=== PATIENT | female | born 1970 | race Asian ===

== ENCOUNTER 2018-02-17 11:50 | Inpatient (IN) ==
[~2018-02-17 11:50] MED LIST: EPINEPHrine 1 MG/10 ML SYRINGE IV ONE
[2018-02-17] MEDS ORDERED: ASPIRIN 325 MG TABLET PO ONE (12:11)
[2018-02-17] MEDS ORDERED: diphenhydrAMINE CAP 25 MG CAPSULE PO ONE (12:11)
[2018-02-17] MEDS ORDERED: DIAZEPAM 5 MG TABLET PO ONE (12:11)
[2018-02-17] MEDS ORDERED: MAGNESIUM SULF RIDER 2 GM in PREMIX 1 EACH IV PRN (12:11)
[2018-02-17] MEDS ORDERED: ASPIRIN 325 MG TABLET ONE (12:37)
[2018-02-17] MEDS ORDERED: DIAZEPAM 5 MG TABLET ONE (12:37)
[2018-02-17] MEDS ORDERED: diphenhydrAMINE CAP 25 MG CAPSULE ONE (12:37)
[2018-02-17] MEDS: SODIUM CHLORIDE 0.9% 1,000 ML IV SCH (12:39)
[2018-02-17] MEDS ORDERED: LIDOCAINE 1% 20 ML VIAL ONE (12:42)
[2018-02-17] MEDS ORDERED: HEPARIN/NACL 0.9% 2 UNITS/ML 1,000 ML IV ONE (12:42)
[2018-02-17 12:55] LABS: INR 1.1; PT Patient Result 11.4 SECS
[2018-02-17 12:58] LABS: Calcium 8.9 MG/DL (8.5-10.1); Osmolality,Calculated 287.1 MOS/KG (273-304); Potassium 3.7 MMOL/L (3.5-5.1)
[2018-02-17 13:10] LABS: Basophils # 0.1 10*3/uL (0.0-0.2); Basophils % 0.8 % (0.0-0.8); Eosinophils # 0.1 10*3/uL (0.0-0.87); Eosinophils % 1.1 % (0.00-10.9); Hematocrit 30.6 VOL% (35.7-47.0); Immature Granulocytes % 0.5 %; Immature Granulocytes Absolute 0.04 #; Lymphocytes # 1.5 10*3/uL (1.4-4.0); Lymphocytes % 19.4 % (21.3-54.2); Mean Corpuscular HGB Conc 28.4 GM/DL (32-36); Mean Corpuscular Hemoglobin 19 PG (27-34); Mean Platelet Volume 10.4 FL (9.6-12.0); Monocytes # 0.7 10*3/uL (0.11-0.8); Monocytes % 8.4 % (1.7-12.7); Neutrophils # 5.6 10*3/uL (1.4-7.4); Neutrophils % 69.8 % (38.7-73.9); Platelet Count 434 T/CUMM (130-400); Red Blood Count 4.57 MC/CUMM (3.8-5.5); Red Cell Distribution Width 19.1 % (9.3-17.3)
[2018-02-17 13:13] LABS: Hemoglobin 8.7 GM/DL (12.0-16.0)
[2018-02-17] MEDS ORDERED: VERAPAMIL 5 MG/2 ML VIAL ONE (13:13)
[2018-02-17] MEDS ORDERED: NITROGLYCERIN DRIP 50 MG/250 ML BOTTLE IV ONE (13:13)
[2018-02-17] MEDS ORDERED: HYDROmorphone 2 MG/1 ML VIAL ONE (13:15)
[2018-02-17] MEDS ORDERED: MIDAZOLAM 2 MG/2 ML VIAL ONE (13:15)
[2018-02-17] MEDS ORDERED: FUROSEMIDE 40 MG/4 ML VIAL ONE (13:35)
[2018-02-17] MEDS ORDERED: ENOXAPARIN 30 MG/0.3 ML SYRINGE ONE (13:37)
[2018-02-17] MEDS ORDERED: diphenhydrAMINE CAP 25 MG CAPSULE PO PRN (14:25)
[2018-02-17] MEDS ORDERED: ONDANSETRON 4 MG/2 ML VIAL ONE (14:42)
[2018-02-17] MEDS ORDERED: ONDANSETRON 4 MG/2 ML VIAL IV ONE (14:45)
[2018-02-17] MEDS: FUROSEMIDE 40 MG TABLET PO SCH (15:56)
[2018-02-17] MEDS: CARVEDILOL 3.125 MG TABLET PO SCH ×2 (15:56→20:44)
[2018-02-17] MEDS: ROSUVASTATIN 20 MG TABLET PO SCH (20:44)
[2018-02-18 03:51] LABS: Basophils # 0.1 10*3/uL (0.0-0.2); Basophils % 0.9 % (0.0-0.8); Eosinophils # 0.3 10*3/uL (0.0-0.87); Eosinophils % 3.6 % (0.00-10.9); Hematocrit 26.6 VOL% (35.7-47.0); Hemoglobin 7.6 GM/DL (12.0-16.0); Immature Granulocytes % 0.2 %; Immature Granulocytes Absolute 0.02 #; Lymphocytes # 1.1 10*3/uL (1.4-4.0); Mean Corpuscular HGB Conc 28.6 GM/DL (32-36); Mean Corpuscular Hemoglobin 19 PG (27-34); Mean Corpuscular Volume 65.7 FL (87-102); Mean Platelet Volume 10.2 FL (9.6-12.0); Monocytes # 0.8 10*3/uL (0.11-0.8); Monocytes % 9.1 % (1.7-12.7); Neutrophils # 6.4 10*3/uL (1.4-7.4); Neutrophils % 73.2 % (38.7-73.9); Platelet Count 384 T/CUMM (130-400); Red Blood Count 4.05 MC/CUMM (3.8-5.5); Red Cell Distribution Width 18.4 % (9.3-17.3); White Blood Count 8.7 T/CUMM (4-12)
[2018-02-18 04:17] LABS: Calcium 7.9 MG/DL (8.5-10.1); Osmolality,Calculated 284.3 MOS/KG (273-304); Potassium 3.3 MMOL/L (3.5-5.1)
[2018-02-18 04:21] LABS: Calcium 7.7 MG/DL (8.5-10.1); Potassium 3.2 MMOL/L (3.5-5.1); Risk Ratio 3.83; VLDL CHOLESTEROL 18.4 MG/DL
[2018-02-18 04:33] LABS: Hypochromasia Slight; Microcytosis 2+; Platelet Estimate Normal; Target Cells Few
[2018-02-18 04:34] LABS: Anisocytosis 2+; Elliptocytes Few
[2018-02-18] MEDS: LEVOTHYROXINE 150 MCG TABLET PO SCH (06:35)
[2018-02-18] MEDS: CARVEDILOL 3.125 MG TABLET PO SCH ×2 (08:55→21:23)
[2018-02-18] MEDS: ASPIRIN EC 81 MG TABLET PO SCH (08:56)
[2018-02-18] MEDS: LOSARTAN 25 MG TABLET PO SCH (08:56)
[2018-02-18] MEDS: CHOLECALCIFEROL 5,000 UNIT TABLET PO SCH (08:56)
[2018-02-18] MEDS: FUROSEMIDE 40 MG TABLET PO SCH ×2 (08:56→16:55)
[2018-02-18] MEDS: ISOSORBIDE MONONITRATE 30 MG TABLET PO SCH (08:56)
[2018-02-18] MEDS: CALCITRIOL 0.5 MCG CAPSULE PO SCH (08:56)
[2018-02-18] MEDS: POTASSIUM CHLORIDE RIDER 10 MEQ in PREMIX 1 EACH IV PRN ×2 (08:58→12:19)
[2018-02-18] MEDS: SPIRONOLACTONE 25 MG TABLET PO SCH (16:55)
[2018-02-18] MEDS: SODIUM CHLORIDE 0.9% 1,000 ML IV SCH (17:47)
[2018-02-18] MEDS: ROSUVASTATIN 20 MG TABLET PO SCH (21:22)
[2018-02-19 04:17] LABS: Calcium 9.3 MG/DL (8.5-10.1); Osmolality,Calculated 288.4 MOS/KG (273-304); Potassium 3.7 MMOL/L (3.5-5.1)
[2018-02-19] MEDS: LEVOTHYROXINE 150 MCG TABLET PO SCH (06:45)
[2018-02-19 08:15] LABS: Basophils % 0.5 % (0.0-0.8); Eosinophils # 0.3 10*3/uL (0.0-0.87); Eosinophils % 3.9 % (0.00-10.9); Hematocrit 27.3 VOL% (35.7-47.0); Hemoglobin 7.8 GM/DL (12.0-16.0); Immature Granulocytes % 0.3 %; Immature Granulocytes Absolute 0.03 #; Lymphocytes # 1.8 10*3/uL (1.4-4.0); Lymphocytes % 20.4 % (21.3-54.2); Mean Corpuscular HGB Conc 28.6 GM/DL (32-36); Mean Corpuscular Hemoglobin 19 PG (27-34); Mean Corpuscular Volume 65.9 FL (87-102); Mean Platelet Volume 10.6 FL (9.6-12.0); Monocytes # 0.9 10*3/uL (0.11-0.8); Neutrophils # 5.7 10*3/uL (1.4-7.4); Neutrophils % 64.9 % (38.7-73.9); Platelet Count 391 T/CUMM (130-400); Red Blood Count 4.14 MC/CUMM (3.8-5.5); White Blood Count 8.7 T/CUMM (4-12)
[2018-02-19 08:39] LABS: Hypochromasia 1+; Platelet Estimate Adequate
[2018-02-19 08:40] LABS: Microcytosis 1+
[2018-02-19] MEDS: LOSARTAN 25 MG TABLET PO SCH (08:49)
[2018-02-19] MEDS: ASPIRIN EC 81 MG TABLET PO SCH (08:49)
[2018-02-19] MEDS: ISOSORBIDE MONONITRATE 30 MG TABLET PO SCH (08:49)
[2018-02-19] MEDS: CHOLECALCIFEROL 5,000 UNIT TABLET PO SCH (08:49)
[2018-02-19] MEDS: CARVEDILOL 3.125 MG TABLET PO SCH ×2 (08:49→20:21)
[2018-02-19] MEDS: SPIRONOLACTONE 25 MG TABLET PO SCH (08:49)
[2018-02-19] MEDS: CALCITRIOL 0.5 MCG CAPSULE PO SCH (08:49)
[2018-02-19] MEDS ORDERED: CEFUROXIME INJ 1,500 MG in SYRINGE 1 EACH IV ONE (10:56)
[2018-02-19] MEDS: SODIUM CHLORIDE 0.9% 1,000 ML IV SCH (11:36)
[2018-02-19] MEDS ORDERED: SODIUM CHLORIDE 0.9% 1,000 ML IV PRN (13:33)
[2018-02-19] MEDS ORDERED: FUROSEMIDE 40 MG/4 ML VIAL IV ONE (16:05)
[2018-02-19 17:45] LABS: Hematocrit 34.4 VOL% (35.7-47.0)
[2018-02-19 17:46] LABS: Hemoglobin 10.6 GM/DL (12.0-16.0)
[2018-02-19] MEDS: CHLORHEXIDINE 0.12% ORAL RINSE 60 ML BOTTLE SWISH/SPIT SCH (20:20)
[2018-02-19] MEDS: ROSUVASTATIN 20 MG TABLET PO SCH (20:21)
[2018-02-19] MEDS: CHLORHEXIDINE 4% SOLN 118 ML BOTTLE TOP SCH (20:21)
[2018-02-20] MEDS: CHLORHEXIDINE 4% SOLN 118 ML BOTTLE TOP SCH ×2 (00:02→09:53)
[2018-02-20 04:00] LABS: Basophils # 0.1 10*3/uL (0.0-0.2); Basophils % 0.6 % (0.0-0.8); Eosinophils # 0.2 10*3/uL (0.0-0.87); Eosinophils % 1.3 % (0.00-10.9); Hematocrit 34.6 VOL% (35.7-47.0); Hemoglobin 10.7 GM/DL (12.0-16.0); Immature Granulocytes % 0.6 %; Immature Granulocytes Absolute 0.09 #; Lymphocytes # 1.3 10*3/uL (1.4-4.0); Lymphocytes % 8.3 % (21.3-54.2); Mean Corpuscular HGB Conc 30.9 GM/DL (32-36); Mean Corpuscular Hemoglobin 21 PG (27-34); Mean Corpuscular Volume 68.7 FL (87-102); Mean Platelet Volume 9.7 FL (9.6-12.0); Monocytes # 0.7 10*3/uL (0.11-0.8); Monocytes % 4.3 % (1.7-12.7); NRBC # 0.04 10*3/uL; Neutrophils # 13.8 10*3/uL (1.4-7.4); Neutrophils % 84.9 % (38.7-73.9); Platelet Count 338 T/CUMM (130-400); Red Blood Count 5.04 MC/CUMM (3.8-5.5); Red Cell Distribution Width 23.4 % (9.3-17.3); White Blood Count 16.2 T/CUMM (4-12)
[2018-02-20 04:26] LABS: Calcium 9.1 MG/DL (8.5-10.1); Osmolality,Calculated 282.5 MOS/KG (273-304); Potassium 3.2 MMOL/L (3.5-5.1)
[2018-02-20] MEDS ORDERED: TISSUE ADHESIVE 1 EACH APPLICATOR TOP ONE ×2 (04:42→13:13)
[2018-02-20] MEDS ORDERED: PAPAVERINE 60 MG/2 ML VIAL ONE (04:42)
[2018-02-20] MEDS ORDERED: VANCOMYCIN 1,000 MG VIAL ONE (04:42)
[2018-02-20 04:51] LABS: Hypochromasia 1+; Platelet Estimate Adequate
[2018-02-20 04:52] LABS: Microcytosis 1+
[2018-02-20] MEDS ORDERED: SODIUM CHLOR 0.9% KCL 40 MEQ 40 MEQ/1,000 ML BAG IV SCH (05:38)
[2018-02-20] MEDS ORDERED: HEPARIN/NACL 0.9% 2 UNITS/ML 500 ML IV ONE (06:52)
[2018-02-20] MEDS ORDERED: PHENYLEPHRINE DRIP 20 MG/250 ML PREMIX IV ONE (06:52)
[2018-02-20] MEDS ORDERED: SODIUM CHLORIDE 0.9% 250 ML IV ONE ×2 (06:53→16:55)
[2018-02-20] MEDS ORDERED: NITROGLYCERIN DRIP 50 MG/250 ML BOTTLE IV ONE (06:53)
[2018-02-20] MEDS ORDERED: SODIUM CHLORIDE 0.9% 1,000 ML IV ONE ×2 (06:53→16:55)
[2018-02-20] MEDS ORDERED: AMINOCAPROIC ACID 5,000 MG/20 ML VIAL IV ONE (06:53)
[2018-02-20] MEDS ORDERED: LACTATED RINGERS 1,000 ML IV ONE (06:53)
[2018-02-20] MEDS: POTASSIUM CHLORIDE RIDER 10 MEQ in PREMIX 1 EACH IV PRN ×2 (07:02→09:56)
[2018-02-20] MEDS: LEVOTHYROXINE 150 MCG TABLET PO SCH (07:05)
[2018-02-20] MEDS ORDERED: CALCIUM CHLORIDE 1,000 MG/10 ML SYRINGE IV ONE (07:37)
[2018-02-20] MEDS ORDERED: ALBUMIN 5% 12.5 GM/250 ML VIAL IV ONE (07:38)
[2018-02-20] MEDS ORDERED: PHENYLEPHRINE DRIP 40 MG/250 ML PREMIX IV ONE (07:38)
[2018-02-20] MEDS ORDERED: EPINEPHrine 1 MG/10 ML SYRINGE ONE (07:38)
[2018-02-20] MEDS ORDERED: POTASSIUM CHLORIDE RIDER 100 ML IV ONE (07:38)
[2018-02-20] MEDS ORDERED: SODIUM BICARBONATE 50 MEQ/50 ML SYRINGE IV ONE ×2 (07:38→16:02)
[2018-02-20] MEDS ORDERED: NITROPRUSSIDE 50 MG/2 ML VIAL ONE (07:39)
[2018-02-20] MEDS ORDERED: CEFUROXIME INJ 1,500 MG in SYRINGE 1 EACH IV ONE (09:00)
[2018-02-20] MEDS ORDERED: MIDAZOLAM 2 MG/2 ML VIAL ONE ×2 (10:39→10:55)
[2018-02-20] MEDS: CHOLECALCIFEROL 5,000 UNIT TABLET PO SCH (12:17)
[2018-02-20] MEDS: ISOSORBIDE MONONITRATE 30 MG TABLET PO SCH (12:17)
[2018-02-20] MEDS: CARVEDILOL 3.125 MG TABLET PO SCH (12:17)
[2018-02-20] MEDS: CHLORHEXIDINE 0.12% ORAL RINSE 60 ML BOTTLE SWISH/SPIT SCH ×2 (12:17→20:28)
[2018-02-20] MEDS: ASPIRIN EC 81 MG TABLET PO SCH (12:17)
[2018-02-20] MEDS: CALCITRIOL 0.5 MCG CAPSULE PO SCH (12:17)
[2018-02-20] MEDS: SODIUM CHLORIDE 0.9% 1,000 ML IV SCH ×3 (12:17→14:45)
[2018-02-20 12:35] LABS: ABG Base Excess -1.4 MMOL/L (-2.5-2.5); ABG HCO3 23.3 MMOL/L (20-26); ABG PCO2 29.3 MM HG (35-48); ABG PH 7.471 (7.35-7.45); ABG TCO2 19.1 MMOL/L (23-27); Glucose Heart Surgery 112 MG/DL (74-106); Hemoglobin Heart Surgery 10.7 G/DL (12.0-16.0); Ionized Calcium Arterial 1.14 MMOL/L (1.21-1.46); PCO2 Patient Temp Arterial 29.3 MMHG; PH Patient Temp Arterial 7.471; Patient Temperature 37 CELCIUS; Potassium Heart/CVR 3.8 MMOL/L (3.5-5.1); Sodium Heart/CVR 138 MMOL/L (135-145)
[2018-02-20 13:01] LABS: Apearance,Urine CLEAR (Clear); Bilirubin,Urine Negative (Negative); Blood, Urine Negative (Negative); Glucose,Urine (UA) Negative (Negative); Ketones,Urine 5 mg/dL (Negative); Nitrite,Urine Negative (Negative); Protein,Urine Negative; RBC,Urine <1 /HPF (0-4); Squamous Epithelial Cell,Urine Occasional /HPF (0-10); Urine Color Yellow (Yellow); Urine Specific Gravity 1.013 (1.001-1.035); Urine Urobilinogen < 2.0 EU/DL (0.2-1.0)
[2018-02-20 14:18] LABS: Hematocrit Heart Surgery 19.5 PERCENT (37-47); PCO2 Patient Temp Venous 31.3 MM HG; PH Patient Temp Venous 7.477; PO2 Patient Temp Venous 32.6 MM HG; Potassium Heart/CVR 4.2 MMOL/L (3.5-5.1); VBG Base Excess -0.1 MEQ/L (0-4); VBG HCO3 24.1 MEQ/L (24-28); VBG Oxygen Saturation 71.5 %; VBG PCO2 34.4 MMHG (41-51); VBG PH 7.447; VBG PO2 37.5 MMHG (17-40)
[2018-02-20 14:19] LABS: Hemoglobin Heart Surgery 6.2 G/DL (12.0-16.0)
[2018-02-20 14:50] LABS: Hematocrit Heart Surgery 20.8 PERCENT (37-47); Hemoglobin Heart Surgery 6.7 G/DL (12.0-16.0); Potassium Heart/CVR 3.6 MMOL/L (3.5-5.1); VBG Base Excess -0.2 MEQ/L (0-4); VBG Oxygen Saturation 74.9 %; VBG PH 7.469; VBG PO2 38.8 MMHG (17-40)
[2018-02-20 14:53] LABS: PCO2 Patient Temp Venous 27.7 MM HG; PH Patient Temp Venous 7.514; PO2 Patient Temp Venous 31.5 MM HG
[2018-02-20] MEDS ORDERED: THROMBIN TOPICAL (RECOMBINANT) 5,000 UNIT VIAL TOP ONE (15:12)
[2018-02-20 15:33] LABS: ABG Base Excess -3.6 MMOL/L (-2.5-2.5); ABG HCO3 21.4 MMOL/L (20-26); ABG PCO2 30.2 MM HG (35-48); ABG PH 7.429 (7.35-7.45); ABG TCO2 18.6 MMOL/L (23-27); Glucose Heart Surgery 272 MG/DL (74-106); Hematocrit Heart Surgery 25.2 PERCENT (37-47); Hemoglobin Heart Surgery 8.1 G/DL (12.0-16.0); Ionized Calcium Arterial 1.37 MMOL/L (1.21-1.46); PCO2 Patient Temp Arterial 26.1 MMHG; PH Patient Temp Arterial 7.473; Patient Temperature 34 CELCIUS; Potassium Heart/CVR 3.8 MMOL/L (3.5-5.1); Sodium Heart/CVR 132 MMOL/L (135-145)
[2018-02-20] MEDS ORDERED: MANNITOL 100 GM/500 ML BAG IV ONE (16:01)
[2018-02-20] MEDS ORDERED: HEPARIN 10,000 UNIT/10 ML VIAL ONE (16:02)
[2018-02-20] MEDS ORDERED: MAGNESIUM SULFATE 10 GM/20 ML VIAL IV ONE (16:02)
[2018-02-20] MEDS ORDERED: methylPREDNISolone SOD SUC 1,000 MG/8 ML VIAL ONE (16:02)
[2018-02-20] MEDS ORDERED: ALBUMIN 25% 25 GM/100 ML VIAL IV ONE (16:02)
[2018-02-20] MEDS ORDERED: PROTAMINE SULFATE 250 MG/25 ML VIAL IV ONE (16:02)
[2018-02-20] MEDS ORDERED: DEXTROSE 5% KCL 20 MEQ 20 MEQ/1,000 ML BAG IV ONE (16:02)
[2018-02-20] MEDS ORDERED: FUROSEMIDE 20 MG/2 ML VIAL ONE (16:03)
[2018-02-20] MEDS ORDERED: POTASSIUM CHLORIDE 20 MEQ/10 ML VIAL ONE (16:03)
[2018-02-20] MEDS: ALBUMIN 5% 12.5 GM in PREMIX 1 EACH IV PRN ×3 (16:45→18:36)
[2018-02-20] MEDS: PHENYLEPHRINE DRIP 40 MG/250 ML PREMIX IV PRN (16:45)
[2018-02-20] MEDS ORDERED: MIDAZOLAM 10 MG/2 ML VIAL ONE (16:54)
[2018-02-20] MEDS ORDERED: CHLORHEXIDINE 4% SOLN 118 ML BOTTLE TOP PRN (16:54)
[2018-02-20] MEDS ORDERED: SUFentanil 250 MCG/5 ML AMP ONE (16:54)
[2018-02-20] MEDS ORDERED: MAGNESIUM SULF RIDER 2 GM in PREMIX 1 EACH IV PRN (16:54)
[2018-02-20] MEDS ORDERED: DEXTROSE 50% 25 GM/50 ML SYRINGE IV PRN ×2 (16:54)
[2018-02-20] MEDS ORDERED: INSULIN REGULAR 100 UNIT/ML IV PRN (16:54)
[2018-02-20] MEDS ORDERED: ACETAMINOPHEN 650 MG SUPP RECTAL PRN (16:54)
[2018-02-20] MEDS ORDERED: CALCIUM CHLORIDE 1,000 MG/10 ML SYRINGE IV PRN (16:54)
[2018-02-20] MEDS ORDERED: SODIUM CHLORIDE 0.9% 250 ML IV PRN (16:54)
[2018-02-20] MEDS ORDERED: MAGNESIUM SULF RIDER 4 GM in PREMIX 1 EACH IV PRN (16:54)
[2018-02-20] MEDS ORDERED: SODIUM CHLORIDE 0.9% 200 ML IV ONE (16:55)
[2018-02-20] MEDS ORDERED: VECURONIUM 10 MG VIAL IV ONE (16:55)
[2018-02-20] MEDS ORDERED: CALCIUM CHLORIDE 1,000 MG/10 ML VIAL IV ONE (16:55)
[2018-02-20] MEDS ORDERED: SEVOFLURANE 1 UNIT/15 MINUTE INH ONE (16:56)
[2018-02-20] MEDS ORDERED: SODIUM CHLORIDE 0.45% 1,000 ML IV SCH (17:00)
[2018-02-20] MEDS ORDERED: INSULIN REGULAR DRIP 100 ML IV SCH (17:00)
[2018-02-20] MEDS: SODIUM CHLORIDE 0.45% 1,000 ML IV SCH (17:07)
[2018-02-20 17:33] LABS: ABG HCO3 20.3 MMOL/L (20-26); ABG Oxygen Saturation 99.3 % (95-100); ABG PCO2 32.4 MM HG (35-48); ABG PH 7.383 (7.35-7.45); ABG TCO2 17.7 MMOL/L (23-27); Glucose Heart Surgery 220 MG/DL (74-106); Hematocrit Heart Surgery 29.4 PERCENT (37-47); Hemoglobin Heart Surgery 9.5 G/DL (12.0-16.0); Potassium Heart/CVR 4.1 MMOL/L (3.5-5.1)
[2018-02-20 17:34] LABS: Basophils # 0.1 10*3/uL (0.0-0.2); Basophils % 0.5 % (0.0-0.8); Eosinophils # 0.2 10*3/uL (0.0-0.87); Eosinophils % 1.3 % (0.00-10.9); Hematocrit 29.3 VOL% (35.7-47.0); Hemoglobin 9.2 GM/DL (12.0-16.0); Immature Granulocytes % 1.4 %; Immature Granulocytes Absolute 0.16 #; Lymphocytes # 0.7 10*3/uL (1.4-4.0); Mean Corpuscular HGB Conc 31.4 GM/DL (32-36); Mean Corpuscular Hemoglobin 22 PG (27-34); Mean Corpuscular Volume 71.3 FL (87-102); Mean Platelet Volume 10.3 FL (9.6-12.0); Monocytes # 0.4 10*3/uL (0.11-0.8); Monocytes % 3.9 % (1.7-12.7); NRBC # 0.02 10*3/uL; Neutrophils # 9.7 10*3/uL (1.4-7.4); Neutrophils % 86.9 % (38.7-73.9); Red Blood Count 4.11 MC/CUMM (3.8-5.5); Red Cell Distribution Width 23.8 % (9.3-17.3)
[2018-02-20 17:39] LABS: Platelet Count 213 T/CUMM (130-400); White Blood Count 11.2 T/CUMM (4-12)
[2018-02-20 17:44] LABS: INR 1.2; PT Patient Result 12.8 SECS; Partial Thromboplastin Time 27.7 SECS (0-40)
[2018-02-20 17:55] LABS: Calcium 9.5 MG/DL (8.5-10.1); Osmolality,Calculated 284.7 MOS/KG (273-304); Potassium 4.1 MMOL/L (3.5-5.1)
[2018-02-20 19:02] LABS: ABG HCO3 20.3 MMOL/L (20-26); ABG PCO2 34.9 MM HG (35-48); ABG PH 7.362 (7.35-7.45); ABG TCO2 18.5 MMOL/L (23-27); Glucose Heart Surgery 165 MG/DL (74-106); Hematocrit Heart Surgery 25.4 PERCENT (37-47); Hemoglobin Heart Surgery 8.1 G/DL (12.0-16.0); Potassium Heart/CVR 4.1 MMOL/L (3.5-5.1)
[2018-02-20] MEDS ORDERED: ASPIRIN 325 MG TABLET PO ONE (19:08)
[2018-02-20 19:18] LABS: Anisocytosis 1+; Elliptocytes Few; Hypochromasia 1+; Microcytosis 1+; Platelet Estimate Normal
[2018-02-20 19:19] LABS: Ovalocytes Few; Polychromasia Slight
[2018-02-20] MEDS: MIDAZOLAM 2 MG/2 ML VIAL IV PRN (19:43)
[2018-02-20 22:55] LABS: Hematocrit 33.5 VOL% (35.7-47.0); Hemoglobin 10.6 GM/DL (12.0-16.0)
[2018-02-20] MEDS: MORPHINE 4 MG/1 ML VIAL IV PRN (23:03)
[2018-02-21] MEDS: CEFUROXIME INJ 1,500 MG in SYRINGE 1 EACH IV SCH ×2 (01:47→12:37)
[2018-02-21] MEDS: ALBUMIN 5% 12.5 GM in PREMIX 1 EACH IV PRN (01:47)
[2018-02-21] MEDS: MORPHINE 4 MG/1 ML VIAL IV PRN ×3 (02:00→21:05)
[2018-02-21] MEDS: ONDANSETRON 4 MG/2 ML VIAL IV PRN ×2 (03:49→15:27)
[2018-02-21] MEDS: MORPHINE 10 MG/1 ML VIAL IV PRN ×4 (04:14→15:48)
[2018-02-21] MEDS: MIDAZOLAM 2 MG/2 ML VIAL IV PRN ×2 (04:14→09:59)
[2018-02-21 04:28] LABS: Basophils % 0.1 % (0.0-0.8); Hematocrit 32.5 VOL% (35.7-47.0); Hemoglobin 10.2 GM/DL (12.0-16.0); Immature Granulocytes % 0.8 %; Immature Granulocytes Absolute 0.13 #; Lymphocytes # 0.5 10*3/uL (1.4-4.0); Lymphocytes % 3.3 % (21.3-54.2); Mean Corpuscular HGB Conc 31.4 GM/DL (32-36); Mean Corpuscular Hemoglobin 23 PG (27-34); Mean Corpuscular Volume 74.7 FL (87-102); Mean Platelet Volume 10.5 FL (9.6-12.0); Monocytes # 0.3 10*3/uL (0.11-0.8); Monocytes % 1.9 % (1.7-12.7); NRBC # 0.06 10*3/uL; Neutrophils # 14.9 10*3/uL (1.4-7.4); Neutrophils % 93.9 % (38.7-73.9); Platelet Count 208 T/CUMM (130-400); Red Blood Count 4.35 MC/CUMM (3.8-5.5); White Blood Count 15.9 T/CUMM (4-12)
[2018-02-21 04:52] LABS: Band Neutrophils 5 % (0-10); Hypochromasia 1+; Lymphocytes 1 % (20-55); Microcytosis 1+; Platelet Estimate Adequate; Segmented Neutrophils 92 % (50-85); Total Cells Counted 100
[2018-02-21 05:01] LABS: Calcium 7.3 MG/DL (8.5-10.1); Osmolality,Calculated 292.7 MOS/KG (273-304); Potassium 3.8 MMOL/L (3.5-5.1)
[2018-02-21] MEDS: POTASSIUM CHLORIDE RIDER 20 MEQ in PREMIX 1 EACH IV PRN ×2 (05:14→14:39)
[2018-02-21] MEDS: SODIUM CHLORIDE 0.45% 1,000 ML IV SCH (05:46)
[2018-02-21] MEDS: POTASSIUM CHLORIDE RIDER 10 MEQ in PREMIX 1 EACH IV PRN ×2 (05:47→15:13)
[2018-02-21 07:09] LABS: ABG Base Excess -7.8 MMOL/L (-2.5-2.5); ABG HCO3 17.5 MMOL/L (20-26); ABG Oxygen Saturation 97.1 % (95-100); ABG PCO2 34.8 MM HG (35-48); ABG PH 7.319 (7.35-7.45); ABG PO2 104.7 MM HG (80-95); ABG TCO2 18.6 MMOL/L (23-27); Glucose Heart Surgery 143 MG/DL (74-106); Hemoglobin Heart Surgery 11.3 G/DL (12.0-16.0)
[2018-02-21] MEDS ORDERED: SODIUM BICARBONATE 50 MEQ/50 ML SYRINGE IV ONE ×3 (07:20→11:36)
[2018-02-21] MEDS: INSULIN REGULAR 100 UNIT/ML SUBCUT SCH ×5 (07:58→23:27)
[2018-02-21] MEDS: PANTOPRAZOLE 40 MG VIAL IV SCH (08:30)
[2018-02-21] MEDS: CLOPIDOGREL 75 MG TABLET PO SCH (08:32)
[2018-02-21] MEDS: CHLORHEXIDINE 0.12% ORAL RINSE 60 ML BOTTLE SWISH/SPIT SCH ×2 (08:35→21:05)
[2018-02-21 11:20] LABS: ABG Base Excess -6.8 MMOL/L (-2.5-2.5); ABG HCO3 18.9 MMOL/L (20-26); ABG Oxygen Saturation 97.2 % (95-100); ABG PCO2 39.6 MM HG (35-48); ABG PH 7.295 (7.35-7.45); ABG PO2 99.4 MM HG (80-95); ABG TCO2 17.6 MMOL/L (23-27); Glucose Heart Surgery 157 MG/DL (74-106); Hematocrit Heart Surgery 32.7 PERCENT (37-47); Hemoglobin Heart Surgery 10.6 G/DL (12.0-16.0); Potassium Heart/CVR 4.1 MMOL/L (3.5-5.1)
[2018-02-21] MEDS: SODIUM BICARB INJ 50 MEQ in SODIUM CHLORIDE 0.45% 1,000 ML IV SCH (13:09)
[2018-02-21] MEDS ORDERED: FUROSEMIDE 40 MG/4 ML VIAL IV ONE (14:12)
[2018-02-21 14:32] LABS: ABG Base Excess -3.5 MMOL/L (-2.5-2.5); ABG HCO3 21.4 MMOL/L (20-26); ABG Oxygen Saturation 95.1 % (95-100); ABG PCO2 43.4 MM HG (35-48); ABG PH 7.322 (7.35-7.45); ABG TCO2 20.5 MMOL/L (23-27); Glucose Heart Surgery 208 MG/DL (74-106); Hematocrit Heart Surgery 32.6 PERCENT (37-47); Hemoglobin Heart Surgery 10.6 G/DL (12.0-16.0); Potassium Heart/CVR 3.6 MMOL/L (3.5-5.1)
[2018-02-21] MEDS: ATORVASTATIN 40 MG TABLET PO SCH ×2 (16:52→21:05)
[2018-02-21] MEDS: FUROSEMIDE 40 MG TABLET PO SCH (16:55)
[2018-02-21] MEDS: CARVEDILOL 3.125 MG TABLET PO SCH (16:55)
[2018-02-21] MEDS: ASPIRIN EC 325 MG TABLET PO SCH (16:55)
[2018-02-21] MEDS ORDERED: METOPROLOL TARTRATE 5 MG/5 ML VIAL IV STA (23:20)
[2018-02-22] MEDS: CEFUROXIME INJ 1,500 MG in SYRINGE 1 EACH IV SCH (00:50)
[2018-02-22] MEDS ORDERED: AMIODARONE INJ 150 MG in DEXTROSE 5% 100 ML IV ONE (03:11)
[2018-02-22] MEDS ORDERED: AMIODARONE INJ 450 MG in DEXTROSE 5% 241 ML IV SCH ×2 (03:30→10:00)
[2018-02-22] MEDS: INSULIN REGULAR 100 UNIT/ML SUBCUT SCH ×6 (03:40→20:14)
[2018-02-22 04:07] LABS: Basophils % 0.1 % (0.0-0.8); Hematocrit 34.8 VOL% (35.7-47.0); Hemoglobin 10.7 GM/DL (12.0-16.0); Immature Granulocytes % 0.9 %; Immature Granulocytes Absolute 0.25 #; Lymphocytes # 1.1 10*3/uL (1.4-4.0); Lymphocytes % 4.2 % (21.3-54.2); Mean Corpuscular HGB Conc 30.7 GM/DL (32-36); Mean Corpuscular Hemoglobin 23 PG (27-34); Mean Platelet Volume 10.5 FL (9.6-12.0); Monocytes % 7.4 % (1.7-12.7); NRBC # 0.12 10*3/uL; Neutrophils # 23.4 10*3/uL (1.4-7.4); Neutrophils % 87.4 % (38.7-73.9); Platelet Count 228 T/CUMM (130-400); Red Blood Count 4.64 MC/CUMM (3.8-5.5); Red Cell Distribution Width 23.2 % (9.3-17.3); White Blood Count 26.8 T/CUMM (4-12)
[2018-02-22 04:21] LABS: Calcium 7.2 MG/DL (8.5-10.1)
[2018-02-22 04:49] LABS: Band Neutrophils 4 % (0-10); Hypochromasia 1+; Lymphocytes 10 % (20-55); Microcytosis 1+; Nucleated Red Blood Cells 2 (0-5); Platelet Estimate Adequate; Segmented Neutrophils 81 % (50-85); Total Cells Counted 100
[2018-02-22] MEDS ORDERED: LACTATED RINGERS 500 ML IV ONE ×2 (06:59→08:23)
[2018-02-22] MEDS: ONDANSETRON 4 MG/2 ML VIAL IV PRN (07:25)
[2018-02-22] MEDS: MORPHINE 4 MG/1 ML VIAL IV PRN ×2 (07:32→23:50)
[2018-02-22] MEDS ORDERED: DOBUTamine 500 MG/250 ML PREMIX IV ONE (07:32)
[2018-02-22] MEDS: DOBUTamine 500 MG/250 ML PREMIX IV SCH (07:41)
[2018-02-22] MEDS: CARVEDILOL 3.125 MG TABLET PO SCH ×2 (08:34→17:30)
[2018-02-22 08:59] LABS: ABG Base Excess -5.4 MMOL/L (-2.5-2.5); ABG HCO3 19.9 MMOL/L (20-26); ABG Oxygen Saturation 97.2 % (95-100); ABG PCO2 34.8 MM HG (35-48); ABG PH 7.355 (7.35-7.45); ABG PO2 93.2 MM HG (80-95); ABG TCO2 17.7 MMOL/L (23-27)
[2018-02-22] MEDS: CLOPIDOGREL 75 MG TABLET PO SCH ×2 (09:10→11:56)
[2018-02-22] MEDS: ASPIRIN EC 325 MG TABLET PO SCH ×2 (09:10→11:55)
[2018-02-22] MEDS: FUROSEMIDE 40 MG TABLET PO SCH ×2 (09:10→11:55)
[2018-02-22] MEDS: CHLORHEXIDINE 0.12% ORAL RINSE 60 ML BOTTLE SWISH/SPIT SCH ×2 (09:10→21:43)
[2018-02-22] MEDS: PANTOPRAZOLE 40 MG VIAL IV SCH (09:11)
[2018-02-22] MEDS ORDERED: CALCIUM CHLORIDE 1,000 MG/10 ML SYRINGE IV ONE ×2 (09:25)
[2018-02-22] MEDS: AMIODARONE INJ 450 MG in DEXTROSE 5% 241 ML IV SCH ×2 (09:30→16:00)
[2018-02-22] MEDS ORDERED: SODIUM BICARBONATE 50 MEQ/50 ML SYRINGE IV ONE ×3 (09:30→17:00)
[2018-02-22] MEDS ORDERED: CALCIUM GLUCONATE 1,000 MG in SODIUM CHLORIDE 0.9% 100 ML IV ONE (09:30)
[2018-02-22] MEDS ORDERED: AMIODARONE 150 MG/3 ML VIAL IV ONE ×5 (09:37→11:34)
[2018-02-22] MEDS ORDERED: FUROSEMIDE 40 MG/4 ML VIAL ONE ×3 (09:38→10:14)
[2018-02-22] MEDS ORDERED: FUROSEMIDE 40 MG/4 ML VIAL IV ONE ×3 (09:39→10:15)
[2018-02-22] MEDS ORDERED: ALBUMIN 5% 12.5 GM/250 ML VIAL IV ONE (09:45)
[2018-02-22] MEDS ORDERED: PROPOFOL 1,000 MG/100 ML BOTTLE IV ONE (09:51)
[2018-02-22] MEDS: SODIUM BICARB INJ 50 MEQ in SODIUM CHLORIDE 0.45% 1,000 ML IV SCH (09:51)
[2018-02-22] MEDS ORDERED: EPINEPHrine 1 MG/10 ML SYRINGE IV ONE (10:00)
[2018-02-22] MEDS ORDERED: EPINEPHrine 1 MG/ML VIAL ONE (10:18)
[2018-02-22] MEDS ORDERED: ETOMIDATE 40 MG/20 ML VIAL IV ONE (10:23)
[2018-02-22] MEDS ORDERED: ROCURONIUM 100 MG/10 ML VIAL IV ONE (10:23)
[2018-02-22] MEDS: PROPOFOL 1,000 MG/100 ML BOTTLE IV SCH (11:28)
[2018-02-22] MEDS: PHENYLEPHRINE DRIP 40 MG/250 ML PREMIX IV PRN ×3 (11:29→20:19)
[2018-02-22] MEDS ORDERED: SODIUM BICARB INJ 50 MEQ in SODIUM CHLORIDE 0.45% 1,000 ML IV SCH (11:30)
[2018-02-22] MEDS ORDERED: AMIODARONE 150 MG/3 ML VIAL ONE (11:34)
[2018-02-22] MEDS ORDERED: HEPARIN/NACL 0.9% 2 UNITS/ML 500 ML IV ONE (12:20)
[2018-02-22 13:42] LABS: ABG Base Excess -8.7 MMOL/L (-2.5-2.5); ABG HCO3 17.5 MMOL/L (20-26); ABG Oxygen Saturation 99.9 % (95-100); ABG PCO2 32.3 MM HG (35-48); ABG PH 7.316 (7.35-7.45); ABG TCO2 14.8 MMOL/L (23-27)
[2018-02-22] MEDS ORDERED: ALBUMIN 25% 25 GM in PREMIX 1 EACH IV ONE (14:30)
[2018-02-22 16:49] LABS: ABG Base Excess -7.6 MMOL/L (-2.5-2.5); ABG HCO3 18.3 MMOL/L (20-26); ABG Oxygen Saturation 99.4 % (95-100); ABG PCO2 28.7 MM HG (35-48)
[2018-02-22] MEDS: ASCORBIC ACID 500 MG TABLET PO SCH ×2 (16:56→21:43)
[2018-02-22] MEDS: ATORVASTATIN 40 MG TABLET PO SCH (21:43)
[2018-02-22] MEDS ORDERED: PHENYLEPHRINE INJ 160 MG in SODIUM CHLORIDE 0.9% 234 ML IV PRN (21:47)
[2018-02-23] MEDS: INSULIN REGULAR 100 UNIT/ML SUBCUT SCH ×6 (00:32→20:23)
[2018-02-23] MEDS: PROPOFOL 1,000 MG/100 ML BOTTLE IV SCH ×3 (01:08→11:38)
[2018-02-23] MEDS: AMIODARONE INJ 450 MG in DEXTROSE 5% 241 ML IV SCH ×2 (01:12→14:35)
[2018-02-23 03:48] LABS: Basophils % 0.2 % (0.0-0.8); Hematocrit 31.3 VOL% (35.7-47.0); Hemoglobin 9.8 GM/DL (12.0-16.0); Immature Granulocytes % 3.4 %; Immature Granulocytes Absolute 0.83 #; Lymphocytes # 1.1 10*3/uL (1.4-4.0); Lymphocytes % 4.3 % (21.3-54.2); Mean Corpuscular HGB Conc 31.3 GM/DL (32-36); Mean Corpuscular Hemoglobin 23 PG (27-34); Mean Corpuscular Volume 74.3 FL (87-102); Mean Platelet Volume 11.3 FL (9.6-12.0); Monocytes # 1.6 10*3/uL (0.11-0.8); Monocytes % 6.6 % (1.7-12.7); NRBC # 0.27 10*3/uL; Neutrophils # 21.1 10*3/uL (1.4-7.4); Neutrophils % 85.5 % (38.7-73.9); Platelet Count 183 T/CUMM (130-400); Red Blood Count 4.21 MC/CUMM (3.8-5.5); Red Cell Distribution Width 25.9 % (9.3-17.3); White Blood Count 24.6 T/CUMM (4-12)
[2018-02-23 04:07] LABS: Calcium 7.5 MG/DL (8.5-10.1); Osmolality,Calculated 295.3 MOS/KG (273-304)
[2018-02-23 04:10] LABS: ABG Base Excess -0.5 MMOL/L (-2.5-2.5); ABG HCO3 21.3 MMOL/L (20-26); ABG Oxygen Saturation 98.6 % (95-100); ABG PH 7.531 (7.35-7.45); ABG PO2 164.8 MM HG (80-95); ABG TCO2 22.1 MMOL/L (23-27)
[2018-02-23 04:44] LABS: Lymphocytes 5 % (20-55); Nucleated Red Blood Cells 1 (0-5); Platelet Estimate Adequate; Polychromasia Few; Segmented Neutrophils 89 % (50-85); Total Cells Counted 100
[2018-02-23] MEDS ORDERED: FUROSEMIDE 40 MG/4 ML VIAL IV ONE ×2 (06:51→18:00)
[2018-02-23] MEDS ORDERED: FUROSEMIDE 40 MG/4 ML VIAL ONE (06:53)
[2018-02-23] MEDS: SODIUM CHLORIDE 0.9% 1,000 ML IV SCH (07:43)
[2018-02-23] MEDS ORDERED: CALCIUM GLUCONATE 2,000 MG in SODIUM CHLORIDE 0.9% 100 ML IV ONE (08:00)
[2018-02-23] MEDS: CLOPIDOGREL 75 MG TABLET PO SCH (08:47)
[2018-02-23] MEDS: PANTOPRAZOLE 40 MG VIAL IV SCH (08:47)
[2018-02-23] MEDS: FUROSEMIDE 40 MG TABLET PO SCH (08:47)
[2018-02-23] MEDS: CHLORHEXIDINE 0.12% ORAL RINSE 60 ML BOTTLE SWISH/SPIT SCH ×2 (08:47→20:31)
[2018-02-23] MEDS: ASCORBIC ACID 500 MG TABLET PO SCH ×2 (08:47→20:32)
[2018-02-23] MEDS: AMIODARONE 200 MG TABLET PO SCH ×2 (08:47→20:31)
[2018-02-23] MEDS: ASPIRIN EC 325 MG TABLET PO SCH (08:47)
[2018-02-23] MEDS: CARVEDILOL 3.125 MG TABLET PO SCH ×2 (08:49→16:42)
[2018-02-23] MEDS: DOBUTamine 500 MG/250 ML PREMIX IV SCH (08:59)
[2018-02-23] MEDS: ATORVASTATIN 40 MG TABLET PO SCH (20:31)
[2018-02-24] MEDS: INSULIN REGULAR 100 UNIT/ML SUBCUT SCH ×6 (00:06→20:16)
[2018-02-24 03:48] LABS: ABG Base Excess 1.5 MMOL/L (-2.5-2.5); ABG HCO3 25.8 MMOL/L (20-26); ABG Oxygen Saturation 99.4 % (95-100); ABG PCO2 29.9 MM HG (35-48); ABG PH 7.511 (7.35-7.45); ABG TCO2 21.7 MMOL/L (23-27)
[2018-02-24] MEDS: MORPHINE 4 MG/1 ML VIAL IV PRN ×5 (03:58→20:52)
[2018-02-24 04:26] LABS: Basophils % 0.1 % (0.0-0.8); Eosinophils % 0.1 % (0.00-10.9); Hemoglobin 9.6 GM/DL (12.0-16.0); Immature Granulocytes % 3.2 %; Immature Granulocytes Absolute 0.59 #; Lymphocytes # 1.4 10*3/uL (1.4-4.0); Lymphocytes % 7.4 % (21.3-54.2); Mean Corpuscular Hemoglobin 23 PG (27-34); Mean Corpuscular Volume 74.7 FL (87-102); Monocytes # 1.2 10*3/uL (0.11-0.8); Monocytes % 6.8 % (1.7-12.7); NRBC # 0.17 10*3/uL; Neutrophils # 15.1 10*3/uL (1.4-7.4); Neutrophils % 82.4 % (38.7-73.9); Platelet Count 190 T/CUMM (130-400); Red Blood Count 4.15 MC/CUMM (3.8-5.5); Red Cell Distribution Width 27.9 % (9.3-17.3); White Blood Count 18.3 T/CUMM (4-12)
[2018-02-24 04:37] LABS: Calcium 7.6 MG/DL (8.5-10.1); Osmolality,Calculated 301.1 MOS/KG (273-304); Potassium 3.7 MMOL/L (3.5-5.1)
[2018-02-24] MEDS: POTASSIUM CHLORIDE RIDER 20 MEQ in PREMIX 1 EACH IV PRN (05:05)
[2018-02-24] MEDS: POTASSIUM CHLORIDE RIDER 10 MEQ in PREMIX 1 EACH IV PRN (05:37)
[2018-02-24 05:52] LABS: Band Neutrophils 1 % (0-10); Lymphocytes 6 % (20-55); Nucleated Red Blood Cells 2 (0-5); Segmented Neutrophils 84 % (50-85); Total Cells Counted 100
[2018-02-24 05:53] LABS: Acanthocytes Few; Anisocytosis 1+; Hypochromasia 1+; Ovalocytes Few
[2018-02-24 05:54] LABS: Platelet Estimate Adequate; Target Cells 1+
[2018-02-24] MEDS: AMIODARONE INJ 450 MG in DEXTROSE 5% 241 ML IV SCH ×2 (06:13→21:29)
[2018-02-24] MEDS: PROPOFOL 1,000 MG/100 ML BOTTLE IV SCH ×2 (06:47→16:53)
[2018-02-24] MEDS: ASPIRIN EC 325 MG TABLET PO SCH (08:33)
[2018-02-24] MEDS: AMIODARONE 200 MG TABLET PO SCH ×2 (08:33→20:52)
[2018-02-24] MEDS: DOBUTamine 500 MG/250 ML PREMIX IV SCH (08:33)
[2018-02-24] MEDS: ASCORBIC ACID 500 MG TABLET PO SCH ×2 (08:33→20:51)
[2018-02-24] MEDS: FUROSEMIDE 40 MG TABLET PO SCH (08:33)
[2018-02-24] MEDS: CLOPIDOGREL 75 MG TABLET PO SCH (08:33)
[2018-02-24] MEDS: CARVEDILOL 3.125 MG TABLET PO SCH ×2 (08:34→16:39)
[2018-02-24] MEDS: PANTOPRAZOLE 40 MG VIAL IV SCH (08:49)
[2018-02-24] MEDS: CHLORHEXIDINE 0.12% ORAL RINSE 60 ML BOTTLE SWISH/SPIT SCH ×2 (08:50→21:24)
[2018-02-24] MEDS: ALBUMIN 5% 12.5 GM in PREMIX 1 EACH IV PRN (12:18)
[2018-02-24] MEDS: SODIUM CHLORIDE 0.9% 1,000 ML IV SCH ×2 (12:21→22:26)
[2018-02-24] MEDS: FUROSEMIDE 40 MG/4 ML VIAL IV SCH (12:49)
[2018-02-24] MEDS: ATORVASTATIN 40 MG TABLET PO SCH (20:51)
[2018-02-25] MEDS: INSULIN REGULAR 100 UNIT/ML SUBCUT SCH ×5 (00:29→16:41)
[2018-02-25] MEDS: MORPHINE 4 MG/1 ML VIAL IV PRN ×3 (02:32→22:13)
[2018-02-25 04:30] LABS: ABG Base Excess 1.6 MMOL/L (-2.5-2.5); ABG HCO3 25.9 MMOL/L (20-26); ABG Oxygen Saturation 99.8 % (95-100); ABG PCO2 32.1 MM HG (35-48); ABG PH 7.491 (7.35-7.45); ABG TCO2 22.2 MMOL/L (23-27)
[2018-02-25 05:31] LABS: Basophils % 0.2 % (0.0-0.8); Eosinophils # 0.1 10*3/uL (0.0-0.87); Eosinophils % 0.5 % (0.00-10.9); Hematocrit 31.2 VOL% (35.7-47.0); Hemoglobin 9.6 GM/DL (12.0-16.0); Immature Granulocytes % 5.2 %; Immature Granulocytes Absolute 0.82 #; Lymphocytes # 1.1 10*3/uL (1.4-4.0); Lymphocytes % 7.1 % (21.3-54.2); Mean Corpuscular HGB Conc 30.8 GM/DL (32-36); Mean Corpuscular Hemoglobin 24 PG (27-34); Mean Corpuscular Volume 76.7 FL (87-102); Monocytes # 1.1 10*3/uL (0.11-0.8); Monocytes % 6.7 % (1.7-12.7); NRBC # 0.11 10*3/uL; Neutrophils # 12.7 10*3/uL (1.4-7.4); Neutrophils % 80.3 % (38.7-73.9); Red Blood Count 4.07 MC/CUMM (3.8-5.5); Red Cell Distribution Width 29.6 % (9.3-17.3); White Blood Count 15.9 T/CUMM (4-12)
[2018-02-25 05:37] LABS: Platelet Count 199 T/CUMM (130-400)
[2018-02-25 05:56] LABS: Calcium 7.7 MG/DL (8.5-10.1); Potassium 3.6 MMOL/L (3.5-5.1)
[2018-02-25 06:13] LABS: Hypochromasia 1+; Lymphocytes 16 % (20-55); Microcytosis 1+; Nucleated Red Blood Cells 1 (0-5); Platelet Estimate Normal; Polychromasia Few; Segmented Neutrophils 83 % (50-85); Target Cells Few; Total Cells Counted 100
[2018-02-25] MEDS: POTASSIUM CHLORIDE RIDER 20 MEQ in PREMIX 1 EACH IV PRN (07:45)
[2018-02-25] MEDS: FUROSEMIDE 40 MG/4 ML VIAL IV SCH (08:30)
[2018-02-25] MEDS: PANTOPRAZOLE 40 MG VIAL IV SCH (08:31)
[2018-02-25] MEDS: AMIODARONE 200 MG TABLET PO SCH ×2 (08:31→21:13)
[2018-02-25] MEDS: CLOPIDOGREL 75 MG TABLET PO SCH (08:31)
[2018-02-25] MEDS: DOBUTamine 500 MG/250 ML PREMIX IV SCH (08:31)
[2018-02-25] MEDS: CARVEDILOL 3.125 MG TABLET PO SCH ×4 (08:31→21:31)
[2018-02-25] MEDS: ASCORBIC ACID 500 MG TABLET PO SCH ×2 (08:31→21:12)
[2018-02-25] MEDS: SODIUM CHLORIDE 0.9% 1,000 ML IV SCH (08:31)
[2018-02-25] MEDS: ASPIRIN EC 325 MG TABLET PO SCH (08:32)
[2018-02-25] MEDS: CHLORHEXIDINE 0.12% ORAL RINSE 60 ML BOTTLE SWISH/SPIT SCH ×2 (08:54→21:15)
[2018-02-25] MEDS: PROPOFOL 1,000 MG/100 ML BOTTLE IV SCH (13:13)
[2018-02-25] MEDS ORDERED: METOPROLOL TARTRATE 5 MG/5 ML VIAL IV ONE ×2 (13:23)
[2018-02-25] MEDS: ATORVASTATIN 40 MG TABLET PO SCH (21:12)
[2018-02-25] MEDS: ONDANSETRON 4 MG/2 ML VIAL IV PRN (22:16)
[2018-02-26] MEDS: ONDANSETRON 4 MG/2 ML VIAL IV PRN (04:32)
[2018-02-26] MEDS: MORPHINE 4 MG/1 ML VIAL IV PRN ×3 (04:33→22:18)
[2018-02-26 05:14] LABS: Basophils % 0.3 % (0.0-0.8); Eosinophils # 0.2 10*3/uL (0.0-0.87); Eosinophils % 1.5 % (0.00-10.9); Hematocrit 30.3 VOL% (35.7-47.0); Hemoglobin 9.2 GM/DL (12.0-16.0); Immature Granulocytes % 7.3 %; Immature Granulocytes Absolute 1.13 #; Lymphocytes % 6.6 % (21.3-54.2); Mean Corpuscular HGB Conc 30.4 GM/DL (32-36); Mean Corpuscular Hemoglobin 23 PG (27-34); Mean Corpuscular Volume 76.3 FL (87-102); Mean Platelet Volume 10.8 FL (9.6-12.0); Monocytes # 1.2 10*3/uL (0.11-0.8); Monocytes % 7.8 % (1.7-12.7); NRBC # 0.13 10*3/uL; Neutrophils # 11.9 10*3/uL (1.4-7.4); Neutrophils % 76.5 % (38.7-73.9); Platelet Count 191 T/CUMM (130-400); Red Blood Count 3.97 MC/CUMM (3.8-5.5); Red Cell Distribution Width 29.6 % (9.3-17.3); White Blood Count 15.5 T/CUMM (4-12)
[2018-02-26 05:38] LABS: Osmolality,Calculated 298.4 MOS/KG (273-304); Potassium 3.6 MMOL/L (3.5-5.1)
[2018-02-26] MEDS: POTASSIUM CHLORIDE RIDER 20 MEQ in PREMIX 1 EACH IV PRN (06:24)
[2018-02-26 08:22] LABS: Anisocytosis 2+; Band Neutrophils 10 % (0-10); Lymphocytes 10 % (20-55); Nucleated Red Blood Cells 3 (0-5); Platelet Estimate Normal; Poikilocytosis 1+; Polychromasia 1+; Segmented Neutrophils 77 % (50-85); Target Cells Few; Total Cells Counted 100
[2018-02-26 08:23] LABS: Smudge Cells Few
[2018-02-26] MEDS: ASCORBIC ACID 500 MG TABLET PO SCH ×2 (09:12→21:05)
[2018-02-26] MEDS: CLOPIDOGREL 75 MG TABLET PO SCH (09:13)
[2018-02-26] MEDS: CARVEDILOL 3.125 MG TABLET PO SCH ×3 (09:14→21:06)
[2018-02-26] MEDS: AMIODARONE 200 MG TABLET PO SCH ×2 (09:14→21:05)
[2018-02-26] MEDS: ASPIRIN EC 325 MG TABLET PO SCH (09:14)
[2018-02-26] MEDS: POTASSIUM CHLORIDE RIDER 10 MEQ in PREMIX 1 EACH IV PRN (09:34)
[2018-02-26] MEDS: SODIUM CHLORIDE 0.9% 1,000 ML IV SCH (09:35)
[2018-02-26] MEDS: PANTOPRAZOLE 40 MG VIAL IV SCH (09:35)
[2018-02-26] MEDS: CHLORHEXIDINE 0.12% ORAL RINSE 60 ML BOTTLE SWISH/SPIT SCH ×2 (09:36→21:06)
[2018-02-26] MEDS: FUROSEMIDE 40 MG TABLET PO SCH (09:36)
[2018-02-26] MEDS ORDERED: PROMETHAZINE 25 MG TABLET PO ONE (12:44)
[2018-02-26] MEDS ORDERED: SUPER CALCIUM PO SCH (13:33)
[2018-02-26] MEDS: ATORVASTATIN 40 MG TABLET PO SCH (21:05)
[2018-02-27 04:58] LABS: Basophils % 0.2 % (0.0-0.8); Eosinophils # 0.3 10*3/uL (0.0-0.87); Eosinophils % 2.2 % (0.00-10.9); Hematocrit 28.9 VOL% (35.7-47.0); Hemoglobin 8.8 GM/DL (12.0-16.0); Immature Granulocytes % 6.1 %; Immature Granulocytes Absolute 0.87 #; Lymphocytes # 1.3 10*3/uL (1.4-4.0); Lymphocytes % 8.8 % (21.3-54.2); Mean Corpuscular HGB Conc 30.4 GM/DL (32-36); Mean Corpuscular Hemoglobin 23 PG (27-34); Mean Corpuscular Volume 76.7 FL (87-102); Mean Platelet Volume 11.2 FL (9.6-12.0); Monocytes # 1.3 10*3/uL (0.11-0.8); Monocytes % 8.9 % (1.7-12.7); NRBC # 0.06 10*3/uL; Neutrophils # 10.5 10*3/uL (1.4-7.4); Neutrophils % 73.8 % (38.7-73.9); Platelet Count 189 T/CUMM (130-400); Red Blood Count 3.77 MC/CUMM (3.8-5.5); Red Cell Distribution Width 30.5 % (9.3-17.3); White Blood Count 14.2 T/CUMM (4-12)
[2018-02-27 05:20] LABS: Band Neutrophils 1 % (0-10); Eosinophils 1 % (0-10); Hypochromasia 1+; Lymphocytes 10 % (20-55); Myelocytes 1 %; Nucleated Red Blood Cells 2 (0-5); Ovalocytes Slight; Platelet Estimate Adequate; Segmented Neutrophils 79 % (50-85); Total Cells Counted 100
[2018-02-27 05:21] LABS: Calcium 7.6 MG/DL (8.5-10.1); Osmolality,Calculated 293.1 MOS/KG (273-304); Potassium 3.6 MMOL/L (3.5-5.1)
[2018-02-27] MEDS: LEVOTHYROXINE 150 MCG TABLET PO SCH (06:10)
[2018-02-27] MEDS: POTASSIUM CHLORIDE RIDER 10 MEQ in PREMIX 1 EACH IV PRN ×3 (08:56→11:08)
[2018-02-27] MEDS: PANTOPRAZOLE 40 MG VIAL IV SCH (12:38)
[2018-02-27] MEDS: CLOPIDOGREL 75 MG TABLET PO SCH (13:37)
[2018-02-27] MEDS: AMIODARONE 200 MG TABLET PO SCH ×2 (13:38→20:59)
[2018-02-27] MEDS: ASPIRIN EC 325 MG TABLET PO SCH (13:38)
[2018-02-27] MEDS: ASCORBIC ACID 500 MG TABLET PO SCH ×2 (13:38→20:59)
[2018-02-27] MEDS: CHLORHEXIDINE 0.12% ORAL RINSE 60 ML BOTTLE SWISH/SPIT SCH (13:38)
[2018-02-27] MEDS: FUROSEMIDE 40 MG TABLET PO SCH (13:38)
[2018-02-27] MEDS: CARVEDILOL 3.125 MG TABLET PO SCH ×2 (13:39→20:59)
[2018-02-27] MEDS: MORPHINE 4 MG/1 ML VIAL IV PRN ×2 (15:44→20:59)
[2018-02-27] MEDS: ATORVASTATIN 40 MG TABLET PO SCH (20:59)
[2018-02-28 08:42] LABS: Basophils % 0.2 % (0.0-0.8); Eosinophils # 0.4 10*3/uL (0.0-0.87); Eosinophils % 2.4 % (0.00-10.9); Hematocrit 33.9 VOL% (35.7-47.0); Hemoglobin 10.3 GM/DL (12.0-16.0); Immature Granulocytes % 4.5 %; Immature Granulocytes Absolute 0.67 #; Lymphocytes # 1.6 10*3/uL (1.4-4.0); Lymphocytes % 10.5 % (21.3-54.2); Mean Corpuscular HGB Conc 30.4 GM/DL (32-36); Mean Corpuscular Hemoglobin 24 PG (27-34); Mean Corpuscular Volume 77.9 FL (87-102); Monocytes # 1.3 10*3/uL (0.11-0.8); Monocytes % 8.4 % (1.7-12.7); NRBC # 0.02 10*3/uL; Neutrophils # 11.1 10*3/uL (1.4-7.4); Platelet Count 214 T/CUMM (130-400); Red Blood Count 4.35 MC/CUMM (3.8-5.5); Red Cell Distribution Width 31.6 % (9.3-17.3)
[2018-02-28] MEDS: PANTOPRAZOLE 40 MG VIAL IV SCH (08:59)
[2018-02-28 09:02] LABS: Eosinophils 5 % (0-10); Hypochromasia 1+; Lymphocytes 10 % (20-55); Platelet Estimate Adequate; Segmented Neutrophils 81 % (50-85); Total Cells Counted 100
[2018-02-28] MEDS: AMIODARONE 200 MG TABLET PO SCH ×2 (09:02→22:27)
[2018-02-28] MEDS: ASCORBIC ACID 500 MG TABLET PO SCH ×2 (09:02→22:28)
[2018-02-28] MEDS: FUROSEMIDE 40 MG TABLET PO SCH (09:02)
[2018-02-28] MEDS: CARVEDILOL 3.125 MG TABLET PO SCH ×2 (09:02→22:27)
[2018-02-28] MEDS: LEVOTHYROXINE 150 MCG TABLET PO SCH (09:02)
[2018-02-28] MEDS: ASPIRIN EC 325 MG TABLET PO SCH (09:02)
[2018-02-28] MEDS: CLOPIDOGREL 75 MG TABLET PO SCH (09:02)
[2018-02-28] MEDS: CHLORHEXIDINE 0.12% ORAL RINSE 60 ML BOTTLE SWISH/SPIT SCH ×3 (12:22→22:28)
[2018-02-28] MEDS: SPIRONOLACTONE 25 MG TABLET PO SCH (15:38)
[2018-02-28] MEDS ORDERED: BENZONATATE 100 MG CAPSULE PO PRN (22:09)
[2018-02-28] MEDS: ATORVASTATIN 40 MG TABLET PO SCH (22:27)
[2018-03-01] MEDS ORDERED: guaiFENesin 200 MG/10 ML UDCUP PO PRN (03:45)
[2018-03-01 06:20] LABS: Basophils % 0.2 % (0.0-0.8); Eosinophils # 0.2 10*3/uL (0.0-0.87); Eosinophils % 1.6 % (0.00-10.9); Hematocrit 30.3 VOL% (35.7-47.0); Hemoglobin 9.1 GM/DL (12.0-16.0); Immature Granulocytes % 2.8 %; Immature Granulocytes Absolute 0.41 #; Lymphocytes # 1.4 10*3/uL (1.4-4.0); Lymphocytes % 9.3 % (21.3-54.2); Mean Corpuscular Hemoglobin 23 PG (27-34); Mean Corpuscular Volume 77.7 FL (87-102); Mean Platelet Volume 10.9 FL (9.6-12.0); Monocytes # 1.3 10*3/uL (0.11-0.8); Monocytes % 8.9 % (1.7-12.7); Neutrophils # 11.5 10*3/uL (1.4-7.4); Neutrophils % 77.2 % (38.7-73.9); Platelet Count 210 T/CUMM (130-400); Red Cell Distribution Width 31.7 % (9.3-17.3); White Blood Count 14.9 T/CUMM (4-12)
[2018-03-01 06:59] LABS: Calcium 8.4 MG/DL (8.5-10.1); Osmolality,Calculated 281.7 MOS/KG (273-304); Potassium 3.4 MMOL/L (3.5-5.1)
[2018-03-01] MEDS: LEVOTHYROXINE 150 MCG TABLET PO SCH (07:12)
[2018-03-01 07:25] LABS: Platelet Estimate Normal; Poikilocytosis Slight; Polychromasia Slight
[2018-03-01 07:26] LABS: Anisocytosis 2+
[2018-03-01] MEDS: ASCORBIC ACID 500 MG TABLET PO SCH (08:58)
[2018-03-01] MEDS: FUROSEMIDE 40 MG TABLET PO SCH (08:58)
[2018-03-01] MEDS: ASPIRIN EC 325 MG TABLET PO SCH (08:58)
[2018-03-01] MEDS: CLOPIDOGREL 75 MG TABLET PO SCH (08:58)
[2018-03-01] MEDS: CARVEDILOL 3.125 MG TABLET PO SCH (08:59)
[2018-03-01] MEDS: SPIRONOLACTONE 25 MG TABLET PO SCH (08:59)
[2018-03-01] MEDS: AMIODARONE 200 MG TABLET PO SCH (09:00)
[2018-03-01] MEDS: PANTOPRAZOLE 40 MG VIAL IV SCH (09:00)
[2018-03-01] MEDS: CHLORHEXIDINE 0.12% ORAL RINSE 60 ML BOTTLE SWISH/SPIT SCH (09:00)
[2018-03-01] MEDS ORDERED: POTASSIUM CHLORIDE 20 MEQ TABLET PO ONE ×2 (11:48→13:39)
[2018-03-01] MEDS: ONDANSETRON 4 MG/2 ML VIAL IV PRN (12:17)
[2018-03-01 12:22] VITALS: BP 112/75
[2018-03-02] MEDS ORDERED: POTASSIUM CHLORIDE 20 MEQ TABLET PO SCH (09:00)
== END 2018-03-01 15:07 | disposition home health service (06) | DRG 233 ==
LOC: N.CL 11:50 → N.TELEN 14:34 → N.CVR 02-20 12:08 → N.ICU 02-21 16:59 → N.TELES 02-26 12:49
PROVIDERS: ADMIT Internal Medicine Cardiovascular Disease; ATTEND Internal Medicine Cardiovascular Disease